=== PATIENT | male | born 1990 | race Asian ===

== ENCOUNTER 2018-11-09 07:12 | Emergency (ER) | payer BC ==
[2018-11-09 07:48] VITALS: BP 112/69
--- NOTE | 2018-11-09 07:58 | UC ---
Respiratory Complaint HPI - HPI Summary HPI Summary: Patient presents to urgent care stating that he's had a productive cough for the last 2- 3 weeks. Patient states it was initially clear but has been progressively more thick and yellow over the last couple days. Patient states yesterday he felt warm and febrile. Patient reports he felt sweaty. Patient states coughing was worse during this time. No shortness of breath. No chest pain. Mild congestion in sinuses. No ear pain or sore throat. Patient's taken [id number] herbal remedies without improvement. No nausea vomiting. No antipyretics medications today. Patient recently moving and states he is under a lot of stress with decreased sleep. Patient's medications reviewed this visit. Patient does not have a PCP here in the area. No travel outside of country - History of Current Complaint Chief Complaint: UCGeneralIllness Stated Complaint: FEVER,COUGH Time Seen by Provider: 11/09/18 07:51 Hx Obtained From: Patient Timing: Constant Severity Initially: Mild Severity Currently: Mild Pain Intensity: 2 - Allergies/Home Medications Allergies/Adverse Reactions: Allergies Allergy/AdvReac Type Severity Reaction Status Date / Time No Known Allergies Allergy Verified 11/09/18 07:48 Home Medications: Home Medications [facility] 11/09/18 [History] PMH/Surg Hx/FS Hx/Imm Hx Previously Healthy: Yes - Surgical History Surgical History: None - Family History Known Family History: Positive: Non-Contributory - Social History 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 Negative: Shortness Of Breath Cardiovascular: Positive: Negative Is Patient Immunocompromised?: No Physical Exam - Summary Physical Exam Summary: Vital Signs Reviewed: Yes A+Ox3, cough, congested Eyes: Conjunctiva Clear, DAGO. EOM intact and full ENT: Hearing grossly normal TM x 2 clear, mmoist, uvula midline, no exudate, no erythema Neck: Positive: Supple Respiratory: Positive: no increased WOB, congested, coarse cough with yellow sputum, scattered expiratory wheeze, rhonci right upper lung chandra Cardiovascular: RRR nl s1, s2 no m/r CBT <2 sec abd soft + BS nt/nd no guarding, no distension Musculoskeletal Exam: COTTRELL x 4 without difficulty Strength Intact, ROM Intact Neurological: Positive: Alert, + sensation throughout Psychological: Positive: Normal Response To examiner Skin: Positive: no rash, no ecchymosis Triage Information Reviewed: Yes Vital Signs: Initial Vital Signs Temp 99.8 F 11/09/18 07:44 Pulse 109 11/09/18 07:44 Resp 20 11/09/18 07:44 BP 112/69 11/09/18 07:44 Pulse Ox 100 11/09/18 07:44 Diagnostics - Radiology No standard instances Radiology Interpretation Completed By: Radiologist - Patient Name: BRYAN DEAL Medical Record#: [id number] Ordering Physician: Melvi Aguiar MD Acct.#: [id number] : 1990 Age: 28 Sex: M Location: [facility]RGENT [facility] Exam Date: 11/09/18804 ADM Status: REG ER Order Information: CHEST PA & LAT 2 VWS Accession Number: [id number] CPT: 27041 HISTORY: cough, rhonci right upper COMPARISONS: None relevant available at the time of dictation. VIEWS: 4: Frontal dual-energy and lateral views of the chest. FINDINGS: CARDIOMEDIASTINAL SILHOUETTE: The cardiomediastinal silhouette is normal. KAREN: The karen are normal. PLEURA: The costophrenic angles are sharp. No pleural abnormalities are noted. LUNG PARENCHYMA: The lungs are clear. ABDOMEN: The upper abdomen is clear. There is no subphrenic gas. BONES AND SOFT TISSUES: No bone or soft tissue abnormalities are noted. OTHER: None. IMPRESSION: NO ACTIVE CARDIOPULMONARY DISEASE. <Electronically signed by Teja Jaramillo MD in [place]> 11/09/18813 Dictated By: Teja Jaramillo MD Dictated Date/Time: 11/09/18813 Transcribed Date/Time: 11/09/18813 Copy to: CC:Melvi Aguiar MD; No Primary Care Phys,NOPCP Imaging - [facility] Imaging [facility] Imaging [facility] [id number] [place] [id number] [place] [phone] ph ([phone]) ph ([phone]) ph ([phone]) This report is only to be considered final once signed by the Provider(s) as displayed in the "<Electronically Signed by >" field (s). Absence of a signature indicates the report is in a draft status and still needs to be finalized. In the event this document was created by someone other than the signing Provider, the individual initiating the document will be listed in the "Entered by:" or "Dictated by:" chandra. 1 of Re-Evaluation - Re-Evaluation First Eval Comment: Patient states feels better following nebulizer. States breathing feels easier. Patient chest x-ray reviewed negative. We will give a prescription for antibiotic as well as MDI. Sputum precautions. Motrin Tylenol. Hydrate. Return precautions. Comfortable and agreement with plan. Respiratory Course/Dx - Course Course Of Treatment: Patient presents to urgent care reporting congestion and cough as well as wheezing over the last 14 days. Patient states last night he felt like he had a fever. Patient states cough is nonproductive over thicker yellow sputum. No nausea vomiting. Decreased appetite. On exam patient's vital signs reviewed. Patient does have coarse cough with scattered wheezing increased rhonchi the right upper lung field. Will give A chest x-ray and reassess. Patient comfortable in agreement with plan. - Differential Dx/Diagnosis Provider Diagnosis: Bronchitis Discharge - Sign-Out/Discharge Documenting (check all that apply): Patient Departure All imaging exams completed and their final reports reviewed: Yes - Discharge Plan Condition: Stable Disposition: HOME Prescriptions: Albuterol HFA INHALER* [Ventolin HFA Inhaler*] 2 puff INH Q4H PRN #1 mdi PRN Reason: wheeze Amoxicillin PO (*) [Amoxicillin 875 MG (*)] 875 mg PO BID #20 tab Patient Education Materials: Acute Bronchitis (ED) Forms: *Work Release Referrals: [facility] [Outside] No Primary Care Phys,NOPCP [Primary Care Provider] - Additional Instructions: -Take antibiotics exactly as prescribed until gone -Use your albuterol puffer - 2 puffs every 4 hours for the next 2 days - then as needed -Stay well hydrated - avoid excess caffeine and all alcohol - eat regular, healthy meals - humidify the air in the room where you sleep - boil water, run a hot steam shower, vaporizer, cups of water by heat register - Alternate ibuprofen (advil, motrin) and tylenol every 3hours for fever - okay to take over the counter decongestant and cough medication -- These infections are spread by secretions - do NOT share eating or drinking utensils - clean items you share with other people such as cell phones, computer mouse, TV remote, computer tablets,etc.. Once you have been antibiotics for 2 days, change your toothbrush and your pillowcase. -Contact the physician referral center for assistance in establishing with a new primary care provider. Call your doctor, return here or go to the emergency department with any questions or concerns - Billing Disposition and Condition Condition: STABLE Disposition: Home
[2018-11-09] MEDS ORDERED: Albuterol/Ipratropium NEB.SOL* Albuterol 2.5 MG/Ipratropium 0.5 MG 3 ML INH ONE (08:04)
== END 2018-11-09 08:46 | disposition home or self-care (01) ==
LOC: UCCORT 07:12
DX: J40 Bronchitis, not specified as acute or chronic (principal)
CPT/HCPCS: 71046; 99202; A9270-GY; G0463

== ENCOUNTER 2019-06-05 10:51 | Emergency (ER) | payer BC ==
[2019-06-05 12:46] VITALS: BP 104/76
--- NOTE | 2019-06-05 13:03 | UC ---
UC General HPI - HPI Summary HPI Summary: 4 days of rectal pain. He thinks he has a hemorrhoid but has never had one. unable to sit properly without pain. feels bump near anus is getting bigger and more painful. - History of Current Complaint Chief Complaint: Kerri Stated Complaint: PERSONAL Time Seen by Provider: 06/05/19 12:35 Hx Obtained From: Patient Pain Intensity: 4 Associated Signs & Symptoms: Negative: Abdominal Pain, Fever - Allergy/Home Medications Allergies/Adverse Reactions: Allergies Allergy/AdvReac Type Severity Reaction Status Date / Time No Known Allergies Allergy Verified 06/05/19 12:46 PMH/Surg Hx/FS Hx/Imm Hx Previously Healthy: Yes - Surgical History Surgical History: None - Family History Known Family History: Positive: Non-Contributory - Social History Alcohol Use: Rare Substance Use Type: None Smoking Status (MU): Never Smoked Tobacco Review of Systems All Other Systems Reviewed And Are Negative: Yes Constitutional: Negative: Fever Skin: Negative: Rash, Bruising Gastrointestinal: Positive: Other - +rectal pain. denies blood in stool or purulent material.. 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 the rest of anus was unremarkable and unable to palpate further due to pain. Course/Dx - Course Course Of Treatment: Acute rectal pain that could be complicated hemorrhoid vs. abscess. Will send to Surgery for mcdonald evaluation. He may take nsaids for pain for now. Afebrile. - Differential Dx - Multi-Symptom Differential Diagnoses: Other - Diagnoses Provider Diagnosis: Rectal pain Discharge ED - Sign-Out/Discharge Documenting (check all that apply): Patient Departure All imaging exams completed and their final reports reviewed: No Studies - Discharge Plan Condition: Good Disposition: HOME Patient Education Materials: Hemorrhoids (ED) Referrals: Trent Rodriguez MD [Medical Doctor] - Ghanshyam Bee [Medical Doctor] - Additional Instructions: There is concern this can also be an abscess vs. a more complicated hemorrhoid. I have recommended you see Surgery. - Billing Disposition and Condition Condition: GOOD Disposition: Home - Attestation Statements Provider Attestation: I was available for consult. This patient was seen by the SHAD. The patient was not presented to , seen by or examined by ky -Sally Dela Cruz MD
== END 2019-06-05 13:15 | disposition home or self-care (01) ==
LOC: UCCORT 10:51
DX: K62.89 Other specified diseases of anus and rectum (principal)
CPT/HCPCS: 99211; G0463